=== PATIENT | male | born 2005 | race Two or more races ===

== ENCOUNTER 2023-07-14 19:44 | Emergency (ER) | payer OTHER ==
[~2023-07-14] VITALS: Ht 167.6 cm; Wt 52.2 kg
[2023-07-14] MEDS ORDERED: 0.9 % SODIUM CHLORIDE 500 ML IV SCH (21:30)
[2023-07-14] MEDS ORDERED: ACETAMINOPHEN 500 MG GEL..CAP PO ONE (21:30)
[2023-07-14 22:08] LABS: HEMATOCRIT 47.4 % (39.0-48.0); HEMOGLOBIN 16.4 g/dL (13-16.00); MEAN CELL VOLUME 89.1 fL (80.0-100.00); MEAN CORPUSCULAR HEMOGLOBIN 30.8 pg (27.00-32.0); MEAN CORPUSCULAR HGB CONC 34.6 g/dl (32.0-36.0); PLATELET COUNT 176 K/uL (150-450); RED BLOOD COUNT 5.32 M/uL (4.00-6.00); RED CELL DISTRIBUTION WIDTH 12.5 % (11.5-14.5)
== END 2023-07-14 23:01 | disposition home or self-care (01) ==
LOC: ER 19:44 → EMR PED 20:18
PROVIDERS: Emergency Medicine
DX: J11.1 Influenza due to unidentified influenza virus with other respiratory manifestations (principal)